=== PATIENT | male | born 1995 | race Caucasian/White ===

== ENCOUNTER 2018-04-23 12:55 | Emergency (ER) | payer MEDICAID ==
[~2018-04-23] VITALS: Ht 182.9 cm; Wt 136.4 kg
[2018-04-23 13:48] VITALS: Ht 182.9 cm; Wt 136.4 kg
[2018-04-23] MEDS ORDERED: IBUPROFEN800 MG PO (17:48)
[2018-04-23 18:08] VITALS: BP 117/42
== END 2018-04-23 18:08 | disposition home or self-care (01) ==
LOC: D.ER 12:55
DX: S92.002A Unspecified fracture of left calcaneus, initial encounter for closed fracture (principal); W18.2XXA Fall in (into) shower or empty bathtub, initial encounter; Y93.E1 Activity, personal bathing and showering; Y92.012 Bathroom of single-family (private) house as the place of occurrence of the external cause; F17.200 Nicotine dependence, unspecified, uncomplicated

== ENCOUNTER 2021-01-13 19:41 | Emergency (ER) | payer OTHER ==
[~2021-01-13] VITALS: Ht 182.9 cm; Wt 113.6 kg
[~2021-01-13 19:41] MED LIST: IBUPROFEN800 MG PO
[2021-01-13 19:46] VITALS: BP 147/57; Ht 182.9 cm; Wt 113.6 kg
[2021-01-13] MEDS ORDERED: ERYTHROMYCIN OPT1 GM RIGHT EYE (20:25)
[2021-01-13] MEDS ORDERED: ULTRAM50 MG PO (20:25)
== END 2021-01-13 20:34 | disposition home or self-care (01) ==
LOC: D.ER 19:41
DX: S00.211A Abrasion of right eyelid and periocular area, initial encounter (principal); W54.1XXA Struck by dog, initial encounter; Y93.9 Activity, unspecified; Y92.9 Unspecified place or not applicable